=== PATIENT | female | born 1955 | race Caucasian/White ===

== ENCOUNTER 2017-09-05 07:06 | Day surgery (SDC) | payer MEDICAID ==
[~2017-09-05] VITALS: Ht 154.9 cm; Wt 50.8 kg
[2017-09-05] MEDS ORDERED: ZOLP10TA6 PO (08:27)
[2017-09-05] MEDS ORDERED: ALPR0.5T2 PO (08:27)
[2017-09-05] MEDS ORDERED: LIDOCAINE 2% 100 MG/5 ML UJET TP ONE (08:53)
[2017-09-05] MEDS ORDERED: MIDAZOLAM 2 MG/2 ML VIAL ONE ×2 (08:53)
[2017-09-05] MEDS ORDERED: fentaNYL 0.05 MG/ML VIAL ONE (08:53)
[2017-09-05] MEDS ORDERED: MIDAZOLAM 2 MG/2 ML VIAL IVP ONE (10:05)
[2017-09-05] MEDS ORDERED: fentaNYL 0.05 MG/ML VIAL IVP ONE (10:05)
== END 2017-09-05 10:20 | disposition home or self-care (01) ==
LOC: MDS 07:06 → MMU 07:09 → MDS 10:20
PROVIDERS: ATTEND Internal Medicine Gastroenterology
DX: K62.5 Hemorrhage of anus and rectum (principal); F41.9 Anxiety disorder, unspecified; Z80.0 Family history of malignant neoplasm of digestive organs; Z80.1 Family history of malignant neoplasm of trachea, bronchus and lung; Z88.0 Allergy status to penicillin
CPT/HCPCS: 45378; J2250; J3010